=== PATIENT | female | born 1960 | race Caucasian/White ===

== ENCOUNTER 2019-06-08 23:14 | Inpatient (IN) | payer OTHER, MEDICAID ==
[~2019-06-08] VITALS: Ht 170.2 cm; Wt 102.4 kg
[2019-06-09] MEDS ORDERED: SODIUM CHLORIDE 0.9% 1,000 ML IV ONE
[2019-06-09 00:25] LABS: Basophils # (auto) 0 uL; Basophils % (auto) 0.4 % (0.0-2.0); Eosinophils # (auto) 0 uL; Eosinophils % (auto) 0.2 % (0.0-7.0); Hematocrit 38.5 % (36.0-46.0); Hemoglobin 12.8 g/dL (12.2-16.2); Lymphocytes # (auto) 0.5 uL; Lymphocytes % (auto) 6.6 % (10.0-50.0); Mean Corpuscular Hgb Conc. 33.2 g/dL (32.0-36.0); Mean Corpuscular Volume 87.3 fL (80.0-100.0); Monocytes # (auto) 0.6 uL; Monocytes % (auto) 7.4 % (0.0-12.0); Neutrophils # (auto) 6.9 uL; Neutrophils % (auto) 85.4 % (37.0-80.0); Platelet Count (auto) 160 10^3/uL (140-450); Red Blood Cells 4.41 10^6/uL (4.0-5.20); Red Cell Distribution Width 14.4 % (11.8-14.3); White Blood Cell 8.1 10^3/uL (4.4-10.8)
[2019-06-09] MEDS ORDERED: cefTRIAXone 1GM/50ML D5W 50 ML IV ONE (00:45)
[2019-06-09] MEDS ORDERED: VANCOMYCIN 1GM/250ML 250 ML IV ONE (00:45)
[2019-06-09 00:49] LABS: Albumin 2.3 g/dL (3.4-5.0); Calcium 8.7 mg/dL (8.5-10.1); Potassium 3.7 mmol/L (3.5-5.1)
[2019-06-09 00:51] LABS: Lactic Acid w/Reflex 2.4 mmol/L (0.4-2.0)
[2019-06-09 00:52] LABS: Bilirubin, Total 0.6 mg/dL (0.2-1.0); Total Protein 7.3 g/dL (6.4-8.2)
[2019-06-09 01:00] LABS: Urine Amorphous Crystal MOD /hpf (None Seen); Urine Bacteria FEW /hpf (None Seen); Urine Blood TRACE /uL (Negative); Urine Hyaline Cast FEW /lpf (0 - 2); Urine Mucus FEW (None Seen); Urine Specific Gravity 1.021 (1.001-1.035); Urine WBC 5 /hpf (0 - 5)
[2019-06-09 01:12] LABS: Alcohol, Urine < 3.0 mg/dL (0-5); Amphetamine Screen, Urine NEGATIVE (NEGATIVE); Barbiturate Scree,Urine NEGATIVE (NEGATIVE); Benzodiazephine Screen, Urine NEGATIVE (NEGATIVE); Cannabinoid Screen, Urine NEGATIVE (NEGATIVE); Cocaine Screen, Urine NEGATIVE (NEGATIVE); Opiate Scree,Urine POSITIVE (NEGATIVE); Phencyclidine Screen, Urine NEGATIVE (NEGATIVE)
[2019-06-09] MEDS ORDERED: InsuLIN REG 1unit/0.01ml Soln (100units/ml) IV ONE (04:30)
[2019-06-09] MEDS ORDERED: HYDROcodone-ACET 10/325MG TAB PO ONE (05:00)
[2019-06-09] MEDS ORDERED: ALBUTEROL SULF 2.5 MG/0.5ML(0.5%) NEB SOLN NEB ONE (06:15)
[2019-06-09] MEDS ORDERED: IPRATROPIUM BROM 0.5 MG/2.5ML INH SOL NEB ONE (06:15)
[2019-06-09] MEDS ORDERED: SODIUM CHLORIDE 0.9% 500 ML IV ONE (07:30)
[2019-06-09] MEDS ORDERED: DEXTROSE (50%) 50ML SYRG IV PRN (09:45)
[2019-06-09] MEDS ORDERED: NITROGLYCERIN 0.4 MG SL TAB SL PRN (09:45)
[2019-06-09] MEDS ORDERED: MORPHINE SULF INJ 2 MG/ML SYRINGE 1ML IV PRN (09:45)
[2019-06-09] MEDS ORDERED: VANCOMYCIN PER PHARMACY 0 MG IV SCH (09:45)
[2019-06-09] MEDS: FAMOTIDINE 20 MG TAB PO SCH ×2 (10:13→21:32)
[2019-06-09] MEDS: HYDROcodone-ACET 5/325MG TAB PO PRN ×3 (10:19→21:32)
[2019-06-09] MEDS: SODIUM CHLORIDE 0.9% 1,000 ML IV SCH ×3 (10:26→23:05)
--- NOTE | 2019-06-09 11:10 | NUR ---
RECEIVED PT FROM ER STAFF. PT AWAKE, ALERT, ORIENTEDx4. COOPERATIVE OF CARE, ABLE TO LET NEEDS KNOWN. EFFORTLESS BREATHING ON 2LNC AT THIS TIME. PT AMBULATORY WITH MINIMAL ASSIST. WOUND PRESENT TO RIGHT GREAT TOE. PROTRUSION PRESENT TO UMBILICUS. IV FLUIDS INITIATED PER ORDER. IV PATENT TO LAC #18, PT ORIENTED TO ROOM ENVIRONMENT AND CALL LIGHT SYSTEM. BED IN LOWEST POSITION, AND LOCKED. WILL CONTINUE TO MONITOR.
[2019-06-09 11:30] VITALS: BP 93/58
[2019-06-09 11:31] LABS: Cholesterol 97 mg/dL (< 200); Triglycerides 423 mg/dL (< 150)
[2019-06-09 11:33] LABS: HDL Cholesterol 13 mg/dL (40-59)
[2019-06-09] MEDS: VANCOMYCIN 1GM/250ML 250 ML IV SCH (11:53)
[2019-06-09] MEDS: InsuLIN REG 1unit/0.01ml Soln (100units/ml) SC SCH ×3 (12:06→21:44)
[2019-06-09] MEDS: ACCU-CHEK COMFORT CURVE STRIP VI SCH ×3 (12:07→21:40)
[2019-06-09] MEDS: ACETAMINOPHEN 500 MG TAB PO PRN (12:13)
[2019-06-09 13:00] VITALS: BP 93/58
--- NOTE | 2019-06-09 13:00 | NUR ---
WOUND CARE NOTE: IN TO SEE PATIENT AT THIS TIME PER WOUND CARE CONSULT REQUEST. PATIENT RECENTLY ADMITTED TO [facility] WITH DIAGNOSIS OF CELLULITIS. PATIENT'S CURRENT KRAIG SCORE IS 19. PATIENT STATES THAT SHE GOES TO [facility] AT [facility] FOR TREATMENT OF HER DFU TO THE RIGHT # 1 TOE. CURRENTLY, TOE IS INTACT, CALLOUSED. THERE IS ECCHYMOSIS NOTED TO THE TOE. DORSAL FOOT IS ERYTHEMIC, WARM TO TOUCH. PATIENT HAS A PODIATRY CONSULT PENDING. WOUND PHOTOS TAKEN AT THIS TIME FOR REFERENCE. LEFT WOUNDS OPEN TO AIR. ELEVATED RIGHT FOOT UP ONTO PILLOWS FOR EDEMA CONTROL. RECOMMEND: WILL DEFER ALL RECOMMENDATIONS TO [facility] AT THIS TIME. NO FURTHER WOUND CARE NEEDED AT THIS TIME. Addendum: 06/09/19 at 1720 by Katharine Da Silva RN Amended: Links added.
[2019-06-09] MEDS: PIPERACILLIN-TAZOB 3.375GM 100 ML IV SCH ×2 (13:51→18:16)
--- NOTE | 2019-06-09 14:16 | NUR ---
DR. RAMOS; PER MD TO ORDER MRI RIGHT FOOT; ORDER INPUT.
--- NOTE | 2019-06-09 15:00 | NUR ---
[employer] MADE AWARE OF ORDER. PER MARICRUZ (OMAR): MRI SCHEDULED FOR 06/10/19am
[2019-06-09 17:23] VITALS: BP 96/57
--- NOTE | 2019-06-09 19:00 | NUR ---
Opening Shift Note Assumed care of patient, awake and alert. No S/S of distress/SOB or pain. Safety measures in place bed in lowest position, side rails x2 up, and call light within reach. Instructed on POC and to call for assist PRN, will continue to monitor for changes Q1hr and PRN.
[2019-06-09 22:37] VITALS: BP 160/78
[2019-06-09 22:50] VITALS: BP 132/53
[2019-06-10] MEDS: VANCOMYCIN 1GM/250ML 250 ML IV SCH ×3 (01:18→20:56)
[2019-06-10] MEDS: MORPHINE SULF INJ 2 MG/ML SYRINGE 1ML IV PRN ×2 (02:40→23:33)
[2019-06-10 05:30] VITALS: BP 139/96
[2019-06-10 05:57] LABS: Basophils # (auto) 0.1 uL; Basophils % (auto) 0.4 % (0.0-2.0); Eosinophils # (auto) 0 uL; Eosinophils % (auto) 0.2 % (0.0-7.0); Hematocrit 35.9 % (36.0-46.0); Hemoglobin 12.1 g/dL (12.2-16.2); Lymphocytes # (auto) 1.5 uL; Mean Corpuscular Hemoglobin 29.4 pg (28.0-32.0); Mean Corpuscular Hgb Conc. 33.7 g/dL (32.0-36.0); Mean Corpuscular Volume 87.2 fL (80.0-100.0); Monocytes % (auto) 8.6 % (0.0-12.0); Neutrophils # (auto) 9.6 uL; Neutrophils % (auto) 78.8 % (37.0-80.0); Platelet Count (auto) 165 10^3/uL (140-450); Red Blood Cells 4.11 10^6/uL (4.0-5.20); Red Cell Distribution Width 14.6 % (11.8-14.3); White Blood Cell 12.2 10^3/uL (4.4-10.8)
[2019-06-10] MEDS: PIPERACILLIN-TAZOB 3.375GM 100 ML IV SCH ×5 (06:04→23:33)
[2019-06-10] MEDS: SODIUM CHLORIDE 0.9% 1,000 ML IV SCH ×3 (06:04→21:15)
[2019-06-10 06:11] LABS: INR 0.98 (0.9-1.15); Partial Thromboplastin Time 30.7 sec (23.64-32.05)
[2019-06-10 06:13] LABS: BUN/Creatinine Ratio 22.9; Calcium 8.7 mg/dL (8.5-10.1); Potassium 3.9 mmol/L (3.5-5.1)
[2019-06-10] MEDS: ACCU-CHEK COMFORT CURVE STRIP VI SCH ×4 (06:47→21:31)
[2019-06-10] MEDS: InsuLIN REG 1unit/0.01ml Soln (100units/ml) SC SCH ×4 (06:47→21:49)
--- NOTE | 2019-06-10 07:45 | NUR ---
Opening Shift Note Assumed care of patient, awake, alert and oriented. No S/S of distress/SOB or pain. Safety measures in place bed in lowest position, side rails x2 up, and call light within reach. Instructed on POC and to call for assist PRN, will continue to monitor for changes Q1hr and PRN.
[2019-06-10] MEDS: FAMOTIDINE 20 MG TAB PO SCH ×2 (08:43→21:31)
[2019-06-10] MEDS: HYDROcodone-ACET 5/325MG TAB PO PRN ×4 (08:44→20:56)
--- NOTE | 2019-06-10 08:44 | NUR ---
PAIN PATIENT STATING PAIN 10/10 TINGLING FEELING, IN BILATERAL FEET. C/O PAIN WHEN STANDING. PATIENT STATED "MORPHINE DOESN'T HELP." WILL MEDICATE AND CONTINUE TO MONITOR
[2019-06-10 09:00] VITALS: BP 129/86
--- NOTE | 2019-06-10 12:42 | NUR ---
PAIN PATIENT STATING PAIN 9/10 TINGLING FEELING, IN BILATERAL FEET. C/O PAIN WHEN STANDING. PATIENT STATED "MORPHINE DOESN'T HELP." WILL MEDICATE AND CONTINUE TO MONITOR
--- NOTE | 2019-06-10 12:45 | NUR ---
MD ROUNDS DR Dayton PACHECO AT BEDSIDE DISCUSSING POC WITH PATIENT. ALL QUESTIONS/CONCERNS ANSWERED. NEW ORDERS RECEIVED/CARRIED OUT. WILL CONTINUE TO MONITOR
--- NOTE | 2019-06-10 12:54 | NUR ---
PAGED CM PAGED CM RE: [facility] PATIENT AND TRANSPORT. AWAITING CALL BACK
--- NOTE | 2019-06-10 12:57 | NUR ---
[facility] RETURN CALL ROMERO SPARKS, RETURNED CALL RE: PATIENT TRANSFER TO [facility].
[2019-06-10 13:00] VITALS: BP 111/59
--- NOTE | 2019-06-10 13:05 | NUR ---
ROUNDS PATIENT STATING "SHE DOESN'T WANT TO BE TRANSFERRED TO [facility] DUE TO FAMILY CANNOT VISIT HER." WILL NOTIFY [facility] AND
--- NOTE | 2019-06-10 13:48 | NUR ---
PHONE CALL FAZAL FROM [facility] CALLED RE: PATIENT TRANSFER. NOTIFIED FAZAL PATIENT DOES NOT WANT TO BE TRANSFERRED. FAZAL STATED "SHE WILL FOLLOW UP TOMORROW." WILL NOTIFY
--- NOTE | 2019-06-10 13:58 | NUR ---
MD NOTIFIED DR Dayton PACHECO RE: PATIENT REFUSING TRANSFER.
--- NOTE | 2019-06-10 14:00 | NUR ---
PAGED CM PAGED [facility] RE: PATIENT REFUSING TRANSFER. AWAITING PHONE CALL CM PHONE CALL [facility]MR[facility], RETURNED PHONE CALL. UPDATED ON PATIENT REFUSAL FOR TRANSFER. FAXED PATIENT PROGRESS NOTES TO [facility] [phone] Addendum: 06/10/19 at 1415 by DESHAUN ANGELO RN RN SECOND FAX SENT. MRI RESULTS READ AT 1414
--- NOTE | 2019-06-10 14:05 | NUR ---
FAILED FAX PHONE LINES DOWN. FAX FAILED. WILL FAX AGAIN
--- NOTE | 2019-06-10 15:04 | NUR ---
FAX FAXED PATIENT PROGRESS NOTES TO [facility] [phone].
--- NOTE | 2019-06-10 15:27 | NUR ---
FAILED FAX PHONE LINES DOWN. FAX FAILED. WILL FAX AGAIN
--- NOTE | 2019-06-10 15:59 | NUR ---
FAX FAXED PATIENT PROGRESS NOTES TO [facility] [phone].
--- NOTE | 2019-06-10 16:03 | NUR ---
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 AWAITING PHONE CALL
--- NOTE | 2019-06-10 16:25 | NUR ---
[facility] CALL BACK [facility] JASSO RETURNED PHONE CALL RE: PHONE LINES DOWN AND NOT ABLE TO FAX PROGRESS NOTES TO [facility]
--- NOTE | 2019-06-10 16:55 | NUR ---
PAIN PATIENT STATING PAIN 9/10 TINGLING FEELING, IN BILATERAL FEET. C/O PAIN WHEN STANDING. PATIENT STATED "MORPHINE DOESN'T HELP." WILL MEDICATE AND CONTINUE TO MONITOR
[2019-06-10 17:00] VITALS: BP 130/47
--- NOTE | 2019-06-10 19:15 | NUR ---
Opening Shift Note Assumed care of patient, awake and alert. No S/S of distress/SOB or pain. Safety measures in place bed in lowest position, side rails x2 up, and call light within reach. Family at the bedside. Instructed on POC and to call for assist PRN, will continue to monitor for changes Q1hr and PRN.
[2019-06-10 21:47] VITALS: BP 133/83
[2019-06-11] MEDS: SODIUM CHLORIDE 0.9% 1,000 ML IV SCH ×3 (01:45→15:05)
[2019-06-11] MEDS: HYDROcodone-ACET 5/325MG TAB PO PRN ×4 (01:49→14:14)
[2019-06-11] MEDS: ACETAMINOPHEN 500 MG TAB PO PRN (03:39)
[2019-06-11] MEDS: VANCOMYCIN 1GM/250ML 250 ML IV SCH ×3 (05:08→22:59)
[2019-06-11] MEDS: MORPHINE SULF INJ 2 MG/ML SYRINGE 1ML IV PRN (05:09)
[2019-06-11 05:34] VITALS: BP 120/62
[2019-06-11] MEDS: PIPERACILLIN-TAZOB 3.375GM 100 ML IV SCH ×3 (06:02→17:32)
[2019-06-11] MEDS: InsuLIN REG 1unit/0.01ml Soln (100units/ml) SC SCH ×4 (06:34→22:58)
[2019-06-11] MEDS: ACCU-CHEK COMFORT CURVE STRIP VI SCH ×3 (06:34→22:00)
--- NOTE | 2019-06-11 07:30 | NUR ---
Opening Shift Note Assumed care of patient, she is A/OX4, No S/S of distress/SOB or pain. Bed is in lowest position with 2x side rails up for safety. Call light is within reach. Instructed on POC and to call for assist PRN, will continue to monitor for changes Q1hr and PRN.
[2019-06-11 08:00] VITALS: BP 128/48
[2019-06-11 09:00] VITALS: BP 128/48
[2019-06-11] MEDS: FAMOTIDINE 20 MG TAB PO SCH ×2 (10:07→22:58)
--- NOTE | 2019-06-11 12:18 | NUR ---
Spoke with Corazon from [facility]: [phone]. She was informed that Dr. Calvin Aviles does not think patient is stable for transfer.
--- NOTE | 2019-06-11 14:49 | NUR ---
HOME MEDS Unable to get an accurate list of patient's home medications. States she does not remember the dosage and frequency of some medications. Stated she will have a family member bring the medications as soon as possible.
--- NOTE | 2019-06-11 16:35 | NUR ---
Dr. Aviles informed of blood sugar of 415. Order received for 15 units regular insulin IV now and change to AC/HS blood sugar with aggressive scale. Aggressive scale to start at 22:00.
--- NOTE | 2019-06-11 16:40 | NUR ---
Blood sugar 404 Patient's blood sugar was 404. Repeated test and resulted in 415. Dr. Calvin Aviles was notified, new orders were placed and carried out. Will continue to monitor.
[2019-06-11 16:42] VITALS: BP 126/65
[2019-06-11] MEDS ORDERED: InsuLIN REG 1unit/0.01ml Soln (100units/ml) IV ONE (16:45)
[2019-06-11 22:00] VITALS: BP 119/57
[2019-06-12] MEDS: PIPERACILLIN-TAZOB 3.375GM 100 ML IV SCH ×4 (00:24→18:30)
[2019-06-12] MEDS: SODIUM CHLORIDE 0.9% 1,000 ML IV SCH ×5 (03:00→17:45)
--- NOTE | 2019-06-12 05:19 | NUR ---
Patient had bowel movement.
[2019-06-12 05:39] VITALS: BP 147/69
[2019-06-12] MEDS: HYDROcodone-ACET 5/325MG TAB PO PRN (06:23)
[2019-06-12] MEDS: ACCU-CHEK COMFORT CURVE STRIP VI SCH ×4 (06:34→21:53)
[2019-06-12] MEDS: InsuLIN REG 1unit/0.01ml Soln (100units/ml) SC SCH ×4 (06:45→21:52)
[2019-06-12] MEDS: VANCOMYCIN 1GM/250ML 250 ML IV SCH ×3 (07:00→23:07)
[2019-06-12 09:00] VITALS: BP 131/83
--- NOTE | 2019-06-12 11:24 | NUR ---
Nutrition consult/assessment Notes please see attached link for complete assessment Est. Needs ABW 81 [id number] kcal (20-23 kcal/kgBW), 81-89 gms pro (1.0-1.1 gms/kgBW). Will continue to monitor pertinent labs and reassess nutrient need prn Addendum: 06/12/19 at [address] Amended: Links added.
[2019-06-12] MEDS: FAMOTIDINE 20 MG TAB PO SCH ×2 (11:31→23:01)
[2019-06-12 13:00] VITALS: BP 136/84
--- NOTE | 2019-06-12 14:20 | NUR ---
CONTACTED DR Dayton PACHECO VIA PHONE MADE AWARE OF REPEAT FSBS 437. NEW ORDERS GIVEN. 20UNIT REG INSULIN NOW. FOLLOWED BY 1 LITER NS IV OVER 2 HOURS. RECHECK FSBS, IF LESS THAN 250 MAY DC HOME. IF GREATER THAN 250 DC DISCHARGE.
[2019-06-12] MEDS ORDERED: InsuLIN REG 1unit/0.01ml Soln (100units/ml) IV ONE (14:30)
[2019-06-12] MEDS ORDERED: SODIUM CHLORIDE 0.9% 500 ML IV ONE (14:30)
[2019-06-12 17:00] VITALS: BP_SYST 130; BP_DIAS 55; BP_DIAS 88
--- NOTE | 2019-06-12 17:53 | NUR ---
FSBS AFTER TREATMENT REMAINS ABOVE GOAL TO DC HOME. TEACHING RE MD ORDER STAY ADMITTED. PT RELAXED WATCHING FOOTBALL. COMMUNICATES WITH FAMILY MEMBERS STAYING OVER NIGHT. IVPB ANTIBIOTICS INFUSING. FSBS COVERED WITH SLIDING SCALE. IV FLUIDS RESUMED ORDERED.
--- NOTE | 2019-06-12 19:35 | NUR ---
Opening Shift Note Assumed care of patient, awake and alert watching TV while talking to a family member on the phone. No S/S of distress/SOB or pain. Insructed on POC and to call for assist PRN, will continue to monitor for changes Q1hr and PRN.
[2019-06-12 21:36] VITALS: BP 146/58
[2019-06-13] MEDS: PIPERACILLIN-TAZOB 3.375GM 100 ML IV SCH ×3 (00:37→12:00)
[2019-06-13] MEDS: SODIUM CHLORIDE 0.9% 1,000 ML IV SCH ×2 (00:37→07:03)
[2019-06-13] MEDS: MORPHINE SULF INJ 2 MG/ML SYRINGE 1ML IV PRN (04:01)
[2019-06-13 05:16] VITALS: BP 153/97
[2019-06-13] MEDS: HYDROcodone-ACET 5/325MG TAB PO PRN (05:59)
[2019-06-13] MEDS: VANCOMYCIN 1GM/250ML 250 ML IV SCH (07:02)
[2019-06-13] MEDS: ACCU-CHEK COMFORT CURVE STRIP VI SCH ×2 (07:02→12:15)
[2019-06-13] MEDS: InsuLIN REG 1unit/0.01ml Soln (100units/ml) SC SCH ×2 (07:02→12:14)
--- NOTE | 2019-06-13 08:00 | NUR ---
Opening Shift Note Assumed care of patient, awake and alert ambulating in room. No S/S of distress/SOB or pain. Instructed on POC and to call for assist PRN, will continue to monitor for changes Q1hr and PRN.
[2019-06-13 09:00] VITALS: BP 138/75
[2019-06-13] MEDS: FAMOTIDINE 20 MG TAB PO SCH (09:27)
[2019-06-13 09:52] LABS: Calcium 8.8 mg/dL (8.5-10.1); Potassium 4.4 mmol/L (3.5-5.1)
[2019-06-13 09:57] LABS: BUN/Creatinine Ratio 16.9
[2019-06-13 12:03] VITALS: BP 138/75
[2019-06-13 13:00] VITALS: BP 135/68
--- NOTE | 2019-06-13 13:05 | NUR ---
Discharge Photo Discharge pictures taken.
--- NOTE | 2019-06-13 13:30 | NUR ---
Discharge instructions given as ordered. Encourage to follow up with PMD as instructed. All questions and concerns addressed. Patient verbalized understanding. Medication reconciliation form completed and copy given to patient. IV removed with catheter intact and pressure dressing applied. Telemetry unit returned to ICU. Patient in room awaiting transportation.
--- NOTE | 2019-06-13 14:30 | NUR ---
Discharged Patient taken to vehicle via wheelchair with all personal belongings, accompanied by staff. No distress noted at time of departure.
== END 2019-06-13 14:30 | disposition home or self-care (01) | DRG 871 ==
LOC: EDBD 23:14 → ER 23:16 → TELE-WESTW 23:17
PROVIDERS: ADMIT Nurse Practitioner Acute Care; ATTEND Family Medicine
DX: A41.9 Sepsis, unspecified organism (principal); G93.41 Metabolic encephalopathy; N17.0 Acute kidney failure with tubular necrosis; L03.115 Cellulitis of right lower limb; N13.6 Pyonephrosis; L03.031 Cellulitis of right toe; E11.621 Type 2 diabetes mellitus with foot ulcer; L97.519 Non-pressure chronic ulcer of other part of right foot with unspecified severity; E86.0 Dehydration; E11.649 Type 2 diabetes mellitus with hypoglycemia without coma; E11.65 Type 2 diabetes mellitus with hyperglycemia; E66.9 Obesity, unspecified; E78.00 Pure hypercholesterolemia, unspecified; E78.5 Hyperlipidemia, unspecified; E11.42 Type 2 diabetes mellitus with diabetic polyneuropathy; I10 Essential (primary) hypertension; I70.0 Atherosclerosis of aorta; J44.9 Chronic obstructive pulmonary disease, unspecified; K21.9 Gastro-esophageal reflux disease without esophagitis; K42.9 Umbilical hernia without obstruction or gangrene; K57.30 Diverticulosis of large intestine without perforation or abscess without bleeding; K76.0 Fatty (change of) liver, not elsewhere classified; M43.16 Spondylolisthesis, lumbar region; M19.90 Unspecified osteoarthritis, unspecified site; M51.36 Other intervertebral disc degeneration, lumbar region; Z79.4 Long term (current) use of insulin; Z87.440 Personal history of urinary (tract) infections; Z87.891 Personal history of nicotine dependence; Z88.5 Allergy status to narcotic agent; Z88.6 Allergy status to analgesic agent; Z88.8 Allergy status to other drugs, medicaments and biological substances; Z68.35 Body mass index [BMI] 35.0-35.9, adult; Z79.899 Other long term (current) drug therapy
CPT/HCPCS: 36415; 73700; 73718; 74176; 80048; 80053; 80061; 80202; 80307; 81001; 82962; 83036; 83605; 83690; 85025; 85610; 85730; 87040; 87077; 87186; 93926; 94640; 96365; 96367; 96372; G0378; J0696; J1815; J2543